=== PATIENT | female | born 1965 | race Caucasian/White ===

== ENCOUNTER 2019-06-02 19:43 | Emergency (ER) | payer OTHER ==
[~2019-06-02] VITALS: Ht 164.5 cm; Wt 69.0 kg
[2019-06-02] MEDS ORDERED: ketorolac trometh inj. 60 MG/2 ML VIAL IM ONE (21:40)
[2019-06-02 22:51] VITALS: BP 135/91
== END 2019-06-02 23:00 | disposition home or self-care (01) ==
LOC: ER 19:44
DX: G43.909 Migraine, unspecified, not intractable, without status migrainosus (principal); Z91.09 Other allergy status, other than to drugs and biological substances
CPT/HCPCS: 96372; 99283; J1885